=== PATIENT | female | born 1960 | race Caucasian/White ===

== ENCOUNTER 2022-06-06 14:46 | Outpatient (CLI) | payer OTHER, SELFPAY ==
[2022-06-06 12:10] LABS: Cholesterol* 260 mg/dL (90-199); Glucose* 99 mg/dL (60-115)
[2022-06-06 12:11] LABS: HDL Cholesterol* 56 mg/dL (>=50); LDL Cholesterol Calculated 171 mg/dL (<100); Triglycerides* 166 mg/dL (40-149)
== END 2022-06-06 14:47 | disposition home or self-care (01) ==
PROVIDERS: PCP Family Medicine; Visit Provider Physician Assistant
DX: Z01.419 Encounter for gynecological examination (general) (routine) without abnormal findings (principal); E78.5 Hyperlipidemia, unspecified; E66.9 Obesity, unspecified; Z13.1 Encounter for screening for diabetes mellitus
CPT/HCPCS: 80061; 82947; 84443

== ENCOUNTER 2022-09-18 10:53 | Outpatient (CLI) | payer OTHER, SELFPAY ==
[2022-09-18 10:55] LABS: Cholesterol* 185 mg/dL (90-199)
[2022-09-18 10:56] LABS: HDL Cholesterol* 63 mg/dL (>=50); LDL Cholesterol Calculated 89 mg/dL (<100); Triglycerides* 164 mg/dL (40-149)
== END 2022-09-18 10:54 | disposition home or self-care (01) ==
PROVIDERS: PCP Internal Medicine; Visit Provider Internal Medicine
DX: E78.5 Hyperlipidemia, unspecified (principal)
CPT/HCPCS: 80061

== ENCOUNTER 2022-10-14 13:04 | Outpatient (CLI) | payer OTHER, SELFPAY ==
--- NOTE | 2022-10-14 13:20 | CRLHL7_ITS ---
For Patients: As a result of the Cures Act, medical imaging exams and procedure reports are released immediately into your electronic medical record. You may view this report before your referring provider. If you have questions, please contact your health care provider. BILATERAL SCREENING MAMMOGRAM WITH COMPUTER-AIDED DETECTION AND TOMOSYNTHESIS TECHNIQUE: CC and MLO views were obtained. These mammographic images have been obtained using full-field digital technique. These mammographic images were interpreted with the benefit of computer-aided detection. Breast Tomosynthesis was used in this interpretation. COMPARISON FILM: 08/17/18, 09/09/14, 09/18/12. FINDINGS: There are scattered areas of fibroglandular density IMPRESSION: There is no radiographic evidence for malignancy. ASSESSMENT: BI-RADS Category 1: Negative RECOMMENDATION: Routine screening mammogram in 1 year. A lay language report of this examination will be provided to the patient. Reji Thakkar M.D. Diagnostic Radiologist [email or web address] Transcribed: 1:40 p.mHenry griffith/Dictated by: Reji Thakkar MD @ 10/15/2022 9:47:00 AM (Electronically Signed)
== END 2022-10-14 13:05 | disposition home or self-care (01) ==
LOC: MAMMO 13:04
PROVIDERS: PCP Internal Medicine; Visit Provider Physician Assistant
DX: Z12.31 Encounter for screening mammogram for malignant neoplasm of breast (principal)
CPT/HCPCS: 77063; 77067

== ENCOUNTER 2023-04-29 11:19 | Outpatient (CLI) | payer OTHER, SELFPAY | END 2023-04-29 11:20 | disposition home or self-care (01) | PROVIDERS: PCP Internal Medicine; Visit Provider Internal Medicine | DX: E78.5 Hyperlipidemia, unspecified (principal); R73.03 Prediabetes; E66.9 Obesity, unspecified | CPT/HCPCS: 80061; 82947 ==